=== PATIENT | female | born 1990 | race Caucasian/White ===

== ENCOUNTER 2021-03-14 15:26 | Emergency (ER) | payer MEDICAID ==
[2021-03-14 19:16] LABS: HEMOGLOBIN 13.6 gm/dl (12.3-15.3); RED BLOOD COUNT 4.63 M/UL (4.00-5.10); WHITE BLOOD COUNT 10.9 K/UL (4.5-11.0)
[2021-03-14 19:32] LABS: BUN/CREATININE RATIO 27 (0-10)
[2021-03-14] MEDS ORDERED: OMNICEF 300 MG300 MG PO (19:43)
== END 2021-03-14 20:12 | disposition home or self-care (01) ==
LOC: ER1 15:26
PROVIDERS: Physician Assistant
DX: O23.92 Unspecified genitourinary tract infection in pregnancy, second trimester (principal); O99.282 Endocrine, nutritional and metabolic diseases complicating pregnancy, second trimester; E86.0 Dehydration; O99.891 Other specified diseases and conditions complicating pregnancy; R51.9 Headache, unspecified; Z3A.16 16 weeks gestation of pregnancy
CPT/HCPCS: 80048; 81001; 85025; 87086; 96374; 99283; J2760; J2765; U0002

== ENCOUNTER 2021-08-24 16:34 | Inpatient (IN) | payer OTHER ==
[~2021-08-24] VITALS: Ht 157.5 cm; Wt 61.7 kg
[~2021-08-24 16:34] MED LIST: OMNICEF 300 MG300 MG PO
[2021-08-24 17:02] LABS: HEMOGLOBIN 10.5 gm/dl (12.3-15.3); RED BLOOD COUNT 4.35 M/UL (4.00-5.10); WHITE BLOOD COUNT 13.1 K/UL (4.5-11.0)
[2021-08-24] MEDS ORDERED: MINI PRENATAL1 EACH PO (17:54)
[2021-08-25] MEDS ORDERED: FERROUS SULFAT325 MG PO (12:45)
[2021-08-25] MEDS ORDERED: COLACE100 MG PO (12:45)
[2021-08-25] MEDS ORDERED: IBUPROFEN600 MG PO (12:45)
[2021-08-26 06:45] LABS: HEMOGLOBIN 9.3 gm/dl (12.3-15.3)
[2021-08-26] MEDS ORDERED: HYDROCODON-ACE1 EAC4 PO (14:00)
== END 2021-08-26 16:55 | disposition home or self-care (01) | DRG 807 ==
LOC: GENOP 16:34 → OB 16:50
PROVIDERS: Obstetrics & Gynecology; ADMIT Obstetrics & Gynecology
PROC: 10E0XZZ Delivery of Products of Conception, External Approach (ICD-10-PCS; principal; 2021-08-24)
PROC: 0KQM0ZZ Repair Perineum Muscle, Open Approach (ICD-10-PCS; 2021-08-24)
PROC: 10907ZC Drainage of Amniotic Fluid, Therapeutic from Products of Conception, Via Natural or Artificial Opening (ICD-10-PCS; 2021-08-24)
PROC: 4A1HXCZ Monitoring of Products of Conception, Cardiac Rate, External Approach (ICD-10-PCS; 2021-08-24)
PROC: 3E033VJ Introduction of Other Hormone into Peripheral Vein, Percutaneous Approach (ICD-10-PCS; 2021-08-24)
DX: O99.02 Anemia complicating childbirth (principal); Z37.0 Single live birth; D64.9 Anemia, unspecified; Z20.822 Contact with and (suspected) exposure to COVID-19; Z28.310 Unvaccinated for COVID-19; Z3A.39 39 weeks gestation of pregnancy; Z82.49 Family history of ischemic heart disease and other diseases of the circulatory system; O70.1 Second degree perineal laceration during delivery
CPT/HCPCS: 36415; 81001; 85014; 85018; 85025; J2590